=== PATIENT | male | born 1975 | race Asian ===

== ENCOUNTER 2023-03-20 01:30 | Emergency (ER) | payer OTHER ==
[~2023-03-20] VITALS: Ht 180.3 cm; Wt 99.8 kg
[2023-03-20] MEDS ORDERED: KETOROLAC TROMETHAMINE INJ 60 MG/2 ML VIAL IM ONE ×2 (02:00→02:31)
[2023-03-20] MEDS ORDERED: NABU-141 PO (04:34)
[2023-03-20 04:42] VITALS: BP 155/111; TEMP 97.9; O2SAT 98
== END 2023-03-20 04:42 | disposition home or self-care (01) ==
LOC: ER 01:34
DX: S39.012A Strain of muscle, fascia and tendon of lower back, initial encounter (principal); M54.2 Cervicalgia; V49.9XXA Car occupant (driver) (passenger) injured in unspecified traffic accident, initial encounter; Y93.89 Activity, other specified; Y92.89 Other specified places as the place of occurrence of the external cause; Y99.8 Other external cause status
CPT/HCPCS: 99284; 96372; 72050; 72110; J1885

== ENCOUNTER 2023-04-06 21:57 | Emergency (ER) | payer OTHER ==
[~2023-04-06] VITALS: Ht 180.3 cm; Wt 102.1 kg
[~2023-04-06 21:57] MED LIST: NABU-141 PO
[2023-04-06] MEDS ORDERED: KETOROLAC TROMETHAMINE INJ 60 MG/2 ML VIAL IM ONE (23:00)
[2023-04-06] MEDS ORDERED: CYCLOBENZAPRINE 10 MG TABLET PO ONE (23:00)
[2023-04-06] MEDS ORDERED: CYCLOBENZAPRINE 10 MG TABLET ONE (23:03)
[2023-04-06] MEDS ORDERED: KETOROLAC TROMETHAMINE INJ 30 MG/ML VIAL ONE (23:03)
[2023-04-06] MEDS ORDERED: CYCL5TAB PO (23:04)
[2023-04-06 23:05] VITALS: BP 137/97; TEMP 98.8; O2SAT 96
== END 2023-04-06 23:15 | disposition home or self-care (01) ==
LOC: ER 22:01
DX: S39.012A Strain of muscle, fascia and tendon of lower back, initial encounter (principal); Z79.899 Other long term (current) drug therapy; Z98.890 Other specified postprocedural states; V89.2XXA Person injured in unspecified motor-vehicle accident, traffic, initial encounter; Y93.89 Activity, other specified; Y92.89 Other specified places as the place of occurrence of the external cause; Y99.8 Other external cause status
CPT/HCPCS: 99283; 96372; J1885